=== PATIENT | male | born 1940 | race Caucasian/White ===

== ENCOUNTER 2016-09-17 05:38 | Inpatient (IN) | payer MEDICARE, OTHER ==
[~2016-09-17] VITALS: Ht 190.5 cm; Wt 108.0 kg
[~2016-09-17 05:38] MED LIST: ASPI-496 PO; ASPI-650 PO; ATEN25TA PO; ATEN50TA41 PO; ATOR20TA PO; ATOR40TA PO; ATOR40TA78 PO; BENA1TAB9 PO; CELE200C PO; CYCL-259 PO; GABA300C10 PO; HYDR12.53 PO; HYDR12.58 PO; NORT25CA PO; OMEP20CA9 PO; OXYB5TAB7 PO; OXYC5CAP4 PO; TRAM50TA2 PO
[2016-09-17 05:57] VITALS: BP 132/91
[2016-09-17] MEDS ORDERED: OMEP-110 PO (06:02)
[2016-09-17] MEDS ORDERED: LACTATED RINGERS 1,000 ML IV SCH (06:02)
[2016-09-17] MEDS ORDERED: THROMBIN 5,000 UNIT VIAL TP ONE (06:14)
[2016-09-17] MEDS ORDERED: BUPIVACAINE/PF-EPI 0.25% 1:200K ONE ×2 (06:14→09:28)
[2016-09-17] MEDS ORDERED: BUPIVACAINE/PF 0.5% ONE (06:14)
[2016-09-17] MEDS ORDERED: NEOSPORIN OINT, 15GM ONE (06:14)
[2016-09-17] MEDS ORDERED: EPINEPHRINE 1 MG/ML, 1ML ONE (06:15)
[2016-09-17] MEDS ORDERED: FENTANYL PF 250 MCG/5ML ONE (06:41)
[2016-09-17] MEDS ORDERED: HYDROmorphone 2 MG/ML, 1ML ONE ×2 (06:41→10:42)
[2016-09-17] MEDS ORDERED: ACETAMINOPHEN 325 MG TABLET PO PRN (07:00)
[2016-09-17] MEDS ORDERED: ALBUTEROL SULFATE 2.5 MG/3 ML NPPB PRN (07:00)
[2016-09-17] MEDS ORDERED: EPHEDRINE 50 MG/ML, 1ML IVPush PRN (07:00)
[2016-09-17] MEDS ORDERED: METOPROLOL 1 MG/ML, 5ML IV PRN (07:00)
[2016-09-17] MEDS ORDERED: hydrALAzine 20 MG/ML, 1ML IV PRN (07:00)
[2016-09-17] MEDS ORDERED: ONDANSETRON 2MG/ML, 2ML IVPush PRN ×2 (07:00→07:30)
[2016-09-17] MEDS ORDERED: OXYcodone 5 MG/5 ML ORAL.SOL UDC PO PRN (07:00)
[2016-09-17] MEDS ORDERED: LABETALOL 5MG/ML, 20ML IV PRN (07:00)
[2016-09-17] MEDS ORDERED: CEFAZOLIN 1,000 MG ONE (07:09)
[2016-09-17] MEDS ORDERED: SUCCINYLCHOLINE 20 MG/ML, 10ML ONE (07:09)
[2016-09-17] MEDS ORDERED: DEXAMETHASONE 4 MG/ML, 1ML ONE (07:09)
[2016-09-17] MEDS ORDERED: PROPOFOL 10 MG/ML, 20ML ONE (07:09)
[2016-09-17] MEDS ORDERED: ONDANSETRON 2MG/ML, 2ML ONE (07:09)
[2016-09-17] MEDS ORDERED: BISACODYL 10 MG SUPP PR PRN (07:30)
[2016-09-17] MEDS ORDERED: morphine SULFATE 10 MG/ML, 1ML IVPush PRN (07:30)
[2016-09-17] MEDS ORDERED: MAGNESIUM HYDROXIDE 8%, 30ML UDC PO PRN (07:30)
[2016-09-17] MEDS ORDERED: DIPHENHYDRAMINE 50 MG/ML, 1ML IVPush PRN (07:30)
[2016-09-17] MEDS ORDERED: SENNA/DOCUSATE TABLET PO PRN (07:30)
[2016-09-17] MEDS ORDERED: METHOCARBAMOL 750 MG TABLET PO PRN (07:30)
[2016-09-17] MEDS ORDERED: PHARMACY MAY ADJ FOR RENAL FX MC PRN (07:30)
[2016-09-17] MEDS ORDERED: BENAZEPRIL 10 MG TABLET PO SCH ×2 (09:00→15:26)
[2016-09-17] MEDS: SODIUM CHLORIDE FLUSH 10ML SYR IVF SCH ×2 (09:00→21:00)
[2016-09-17] MEDS: FENTANYL PF 100 MCG/2ML IV PRN ×2 (10:40→10:50)
[2016-09-17] MEDS ORDERED: FENTANYL PF 100 MCG/2ML ONE (10:42)
[2016-09-17] MEDS: HYDROmorphone 1 MG/ML, 1ML IV PRN ×4 (10:45→11:25)
[2016-09-17] MEDS ORDERED: ACETAMINOPHEN 325 MG TABLET ONE (11:30)
[2016-09-17] MEDS ORDERED: OXYcodone 5 MG/5 ML ORAL.SOL UDC ONE (11:30)
[2016-09-17] MEDS ORDERED: MORPHINE SULFATE 4 MG/ML, 1ML ONE (12:33)
[2016-09-17] MEDS ORDERED: OXYcodone/APAP 5/325MG TABLET ONE ×2 (15:26)
[2016-09-17] MEDS: OXYcodone/APAP 5/325MG TABLET PO PRN ×2 (15:30→20:06)
[2016-09-17] MEDS: OXYBUTYNIN CHLORIDE 5 MG TABLET PO SCH (15:31)
[2016-09-17] MEDS: OMEPRAZOLE 20 MG CAPSULE.DR PO SCH (15:31)
[2016-09-17] MEDS: GABAPENTIN 300 MG CAPSULE PO SCH ×2 (15:31→21:07)
[2016-09-17] MEDS: CEFAZOLIN PMX 1GM/50ML 50 ML IVPB SCH ×2 (16:24→16:25)
[2016-09-17] MEDS ORDERED: LABETALOL 5MG/ML, 20ML IVPush PRN (16:30)
[2016-09-17] MEDS: CEFAZOLIN PMX 1GM/50ML 50 ML IV SCH (16:57)
[2016-09-17] MEDS: D5%-0.9% NACL+KCL 20MEQ 1,000 ML IV SCH (17:01)
[2016-09-17 20:01] VITALS: BP 154/91
[2016-09-17] MEDS ORDERED: HYDROCHLOROTHIAZIDE 25 MG TABLET PO SCH (21:00)
[2016-09-17] MEDS ORDERED: ATORVASTATIN 40 MG TABLET PO SCH (21:00)
[2016-09-17] MEDS ORDERED: BENAZEPRIL 20 MG TABLET PO SCH (21:00)
[2016-09-17] MEDS: TAMSULOSIN 0.4 MG CAP.ER.24H PO SCH (21:07)
[2016-09-18] MEDS: CEFAZOLIN PMX 1GM/50ML 50 ML IV SCH (00:16)
[2016-09-18] MEDS: OXYcodone/APAP 5/325MG TABLET PO PRN ×3 (00:16→08:29)
[2016-09-18 00:18] VITALS: BP 133/83
[2016-09-18] MEDS: D5%-0.9% NACL+KCL 20MEQ 1,000 ML IV SCH (01:27)
[2016-09-18 04:08] VITALS: BP 146/87
[2016-09-18 05:23] LABS: HEMOGLOBIN 13.8 g/dL (13.7-18.0)
[2016-09-18 06:33] VITALS: BP 127/73
[2016-09-18] MEDS: GABAPENTIN 300 MG CAPSULE PO SCH (08:29)
[2016-09-18] MEDS: OXYBUTYNIN CHLORIDE 5 MG TABLET PO SCH (08:29)
[2016-09-18] MEDS: OMEPRAZOLE 20 MG CAPSULE.DR PO SCH (08:29)
[2016-09-18] MEDS: SODIUM CHLORIDE FLUSH 10ML SYR IVF SCH (08:30)
[2016-09-18] MEDS: TAMSULOSIN 0.4 MG CAP.ER.24H PO SCH (08:30)
[2016-09-18] MEDS ORDERED: HYDROCHLOROTHIAZIDE 12.5 MG CAPSULE PO SCH (09:00)
[2016-09-18 11:06] VITALS: BP 118/74
[2016-09-18] MEDS ORDERED: HYDROCHLOROTHIAZIDE 25 MG TABLET PO SCH (21:00)
== END 2016-09-18 11:50 | disposition home or self-care (01) | DRG 455 ==
LOC: ORIP 05:38 → 4NOR 14:45 → DCLOUNGE 09-18 11:30
PROVIDERS: ADMIT Orthopaedic Surgery Orthopaedic Surgery of the Spine; ATTEND Orthopaedic Surgery Orthopaedic Surgery of the Spine
PROC: 0SG10AJ Fusion of 2 or more Lumbar Vertebral Joints with Interbody Fusion Device, Posterior Approach, Anterior Column, Open Approach (ICD-10-PCS; 2016-09-17)
PROC: 0SB24ZZ Excision of Lumbar Vertebral Disc, Percutaneous Endoscopic Approach (ICD-10-PCS; 2016-09-17)
PROC: 4A11X4G Monitoring of Peripheral Nervous Electrical Activity, Intraoperative, External Approach (ICD-10-PCS; 2016-09-17)
PROC: 0SG Lower Joints, Fusion (ICD-10-PCS; principal; 2016-09-17 07:00)
DX: M96.1 Postlaminectomy syndrome, not elsewhere classified (principal); M48.06 Spinal stenosis, lumbar region; M43.16 Spondylolisthesis, lumbar region; M51.16 Intervertebral disc disorders with radiculopathy, lumbar region
CPT/HCPCS: 36415; 72100; 85025; C1713; C1767; J0171; J0690; J1100; J1170; J2405; J2704; J3010; J3490; C1760; C1762; J0330; J2270; J7120

== ENCOUNTER → 2017-02-08 | Outpatient (CLI) | payer MEDICARE, OTHER ==
[~2017-02-08] MED LIST changes: +OMEP-110 PO; +OXYC5CAP2 PO; -OXYC5CAP4 PO
== END | disposition home or self-care (01) ==
LOC: CFH 12:41
PROVIDERS: ATTEND Nurse Practitioner Family
DX: I65.23 Occlusion and stenosis of bilateral carotid arteries (principal)
CPT/HCPCS: 93880

== ENCOUNTER → 2017-03-19 | Outpatient (CLI) | payer MEDICARE | END | disposition home or self-care (01) | LOC: CFH 09:29 | PROVIDERS: ATTEND Physician Assistant Medical | DX: R19.4 Change in bowel habit (principal); R13.12 Dysphagia, oropharyngeal phase | CPT/HCPCS: 74220 ==